=== PATIENT | male | born 1955 | race Caucasian/White ===

== ENCOUNTER 2017-04-10 20:53 | Emergency (ER) | payer OTHER ==
[2017-04-10 23:37] LABS: HEMOGLOBIN 15.3 gm/dl (14.0-17.5); RED BLOOD COUNT 4.78 M/UL (4.20-5.50); WHITE BLOOD COUNT 9.4 K/UL (4.5-11.0)
[2017-04-10 23:55] LABS: BUN/CREATININE RATIO 24 (0-10)
== END 2017-04-11 02:35 | disposition home or self-care (01) ==
LOC: ER1 20:53
PROVIDERS: Physician Assistant
DX: N20.0 Calculus of kidney (principal); H40.9 Unspecified glaucoma; I10 Essential (primary) hypertension; F17.210 Nicotine dependence, cigarettes, uncomplicated; Z79.899 Other long term (current) drug therapy
CPT/HCPCS: 36415; 80053; 81001; 83690; 85025; 85610; 85730; 87086; 96360; 96361; 99284; J7030